=== PATIENT | female | born 1985 | race Caucasian/White ===

== ENCOUNTER 2018-02-22 18:15 | Inpatient (IN) | END 2018-02-23 18:00 | disposition home or self-care (01) | DRG 833 ==

== ENCOUNTER 2018-03-01 16:15 | Inpatient (IN) | END 2018-03-02 19:45 | disposition home or self-care (01) | DRG 833 ==

== ENCOUNTER 2018-03-11 10:52 | Inpatient (IN) | END 2018-03-15 14:40 | disposition home or self-care (01) | DRG 785 ==